=== PATIENT | male | born 1935 | race Caucasian/White ===

== ENCOUNTER 2019-12-30 05:26 | Day surgery (SDC) | payer MEDICARE ==
[~2019-12-30] VITALS: Ht 180.3 cm; Wt 81.9 kg
[~2019-12-30 05:26] MED LIST: ASPI81TA45 PO; ATOR40TA78 PO; ATOR80TA PO; BISA5TAB5 PO; HYDR-3653 PO; LATA2.5D3 EACHEYE; LEVO750T6 PO; LEVO75TA PO; LOSA50TA14 PO; PANT20TA2 PO; TAMS-11 PO; TRAZ50TA66 PO
[2019-12-30] MEDS ORDERED: LACTATED RINGERS 1,000 ML IV SCH (05:53)
[2019-12-30 05:55] VITALS: BP 143/82
[2019-12-30] MEDS ORDERED: CHLORHEXIDINE 15 ML UDC MM ONE (06:00)
[2019-12-30] MEDS ORDERED: FENTANYL PF 100 MCG/2ML ONE (07:28)
[2019-12-30] MEDS ORDERED: FENTANYL PF 100 MCG/2ML IV PRN (07:30)
[2019-12-30] MEDS ORDERED: ONDANSETRON 2MG/ML, 2ML ONE (07:59)
[2019-12-30] MEDS ORDERED: DEXAMETHASONE 4 MG/ML, 1ML ONE (07:59)
[2019-12-30] MEDS ORDERED: NEOSTIGMINE 1 MG/ML, 10ML ONE (07:59)
[2019-12-30] MEDS ORDERED: CEFAZOLIN 1,000 MG ONE (07:59)
[2019-12-30] MEDS ORDERED: GLYCOPYRROLATE 0.2MG/1ML, 5ML ONE (07:59)
[2019-12-30] MEDS ORDERED: ROCURONIUM 10MG/ML,5ML ONE (07:59)
[2019-12-30] MEDS ORDERED: PROPOFOL 10 MG/ML, 20ML ONE (07:59)
[2019-12-30] MEDS ORDERED: SUCCINYLCHOLINE 20 MG/ML, 10ML ONE (07:59)
[2019-12-30] MEDS ORDERED: OMNIPAQUE 350 MG/ML, 50 ML BOTTLE ONE (08:07)
== END 2019-12-30 09:30 | disposition home or self-care (01) ==
LOC: OUT 05:26
PROVIDERS: ATTEND Internal Medicine Gastroenterology
DX: Z46.59 Encounter for fitting and adjustment of other gastrointestinal appliance and device (principal); K80.50 Calculus of bile duct without cholangitis or cholecystitis without obstruction; K21.9 Gastro-esophageal reflux disease without esophagitis; I10 Essential (primary) hypertension; E03.9 Hypothyroidism, unspecified; I25.10 Atherosclerotic heart disease of native coronary artery without angina pectoris; Z88.0 Allergy status to penicillin; Z88.5 Allergy status to narcotic agent; Z88.7 Allergy status to serum and vaccine; Z91.040 Latex allergy status; Z91.010 Allergy to peanuts; Z95.1 Presence of aortocoronary bypass graft
CPT/HCPCS: 43259; 43264; 43275; 74328; C1769; J0330; J1100; J2405; J2704; J3010; J7120; Q9967; J0690; J2710